=== PATIENT | male | born 1945 | race African-American/Black ===

== ENCOUNTER 2018-02-21 13:15 | Emergency (ER) | payer OTHER ==
[2018-02-21 13:20] VITALS: BP 145/70; PULSE 70; TEMP 98.3; BMI 24.4
[2018-02-21] MEDS ORDERED: ACETAMINOPHEN 325 MG TABLET (FP) PO ONE (13:26)
[2018-02-21] MEDS ORDERED: ACETAMINOPHEN 325 MG TABLET (FP) ONE (13:27)
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
== END 2018-02-21 15:20 | disposition home or self-care (01) ==
LOC: FER 13:15
DX: S39.012A Strain of muscle, fascia and tendon of lower back, initial encounter (principal); V43.52XA Car driver injured in collision with other type car in traffic accident, initial encounter; Y93.89 Activity, other specified; Y92.410 Unspecified street and highway as the place of occurrence of the external cause; Z72.0 Tobacco use; I10 Essential (primary) hypertension
CPT/HCPCS: 72100-TC-FY; 99283-25

== ENCOUNTER 2020-03-24 12:01 | Emergency (ER) | payer OTHER ==
[2020-03-24 12:24] VITALS: BP 153/66; PULSE 63; TEMP 98.6; BMI 24.8
[2020-03-24] MEDS ORDERED: IBUPROFEN 400 MG TABLET (FP) PO ONE ×2 (12:33→12:53)
== END 2020-03-24 12:59 | disposition home or self-care (01) ==
LOC: FER 12:01
DX: S43.402A Unspecified sprain of left shoulder joint, initial encounter (principal)
CPT/HCPCS: 99283-25

== ENCOUNTER 2020-07-17 04:46 | Day surgery (SDC) | payer OTHER ==
[2020-07-13 17:22] VITALS: BMI 25.1
[2020-07-17] MEDS ORDERED: PROPOFOL 20 ML ONE (10:05)
[2020-07-17] MEDS ORDERED: MIDAZOLAM HCL 2 MG/2 ML SINGLE DOSE VIAL ONE (10:05)
[2020-07-17] MEDS ORDERED: ONDANSETRON 4 MG/2 ML VIAL IVPUSH PRN (12:08)
[2020-07-17] MEDS ORDERED: ACETAMINOPHEN 325 MG TABLET (FP) PO PRN (12:08)
[2020-07-17] MEDS ORDERED: oxyCODONE HCL 5 MG TABLET PO PRN (12:08)
[2020-07-17] MEDS ORDERED: LACTATED RINGERS SOLUTION 1,000 ML IV SCH (12:15)
[2020-07-17 13:45] VITALS: BP 149/60; PULSE 64; TEMP 97.8
== END 2020-07-17 11:45 | disposition home or self-care (01) ==
LOC: JASU-SURG 04:46
PROVIDERS: ATTEND Urology
PROC: 0TF3XZZ Fragmentation in Right Kidney Pelvis, External Approach (ICD-10-PCS; principal; 2020-07-17 09:30)
DX: N20.0 Calculus of kidney (principal); I10 Essential (primary) hypertension; E11.9 Type 2 diabetes mellitus without complications; Z79.84 Long term (current) use of oral hypoglycemic drugs
CPT/HCPCS: 82962

== ENCOUNTER 2020-11-19 09:46 | Observation (INO) | payer OTHER ==
[2020-11-19] MEDS ORDERED: ASPIRIN 81 MG CHEWABLE TABLETS PO ONE (10:20)
[2020-11-19] MEDS ORDERED: ASPIRIN 81 MG CHEWABLE TABLETS ONE (10:22)
[2020-11-19 10:45] LABS: ACTIVATED PTT 27.7 SECONDS (25.2-36.5)
[2020-11-19 10:49] LABS: INR 1.08 (0.82-1.09)
[2020-11-19 10:51] LABS: ADD RBC MORPHOLOGY YES; BASO % 3.9 % (0-2.0); EOS % 7.2 % (0-4.5); HEMATOCRIT 40.7 % (35.4-49); HEMOGLOBIN 12.6 GM/dl (11.7-16.9); LYMPH % 31.4 % (8-40); MCH 21.9 pg (25.7-33.7); MCHC 31.1 g/dl (32.0-35.9); MEAN CELL VOLUME 70.3 fl (80-96); MEAN PLT VOLUME 9.5 fl (7.5-11.1); MONO % 8.6 % (3.8-10.2); NEUT % 48.9 % (42.8-82.8); PLATELET COUNT 169 10^3/uL (134-434); RBC 5.78 M/mm3 (4.00-5.60); RDW 14.3 % (11.9-15.9)
[2020-11-19 10:56] LABS: ALBUMIN 3.9 g/dl (3.4-5.0); ALK PHOS 48 U/L (45-117); ANION GAP 6 MMOL/L (8-16); BILIRUBIN,TOTAL 0.4 mg/dl (0.2-1); CALCIUM 9.1 mg/dl (8.5-10); CHLORIDE 105 mmol/L (98-107); CO2 24 mmol/L (21-32); CREATININE 0.9 mg/dl (0.55-1.3); GLUCOSE,RANDOM 146 mg/dl (74-106); SGOT/AST 25 U/L (15-37); SGPT/ALT 19 U/L (13-61); SODIUM 135 mmol/L (136-145); TOT PROT 6.5 g/dl (6.4-8.2)
[2020-11-19] MEDS ORDERED: LORazepam 0.5 MG TABLET ONE (11:06)
[2020-11-19] MEDS ORDERED: ACETAMINOPHEN 325 MG TABLET (FP) PO PRN (14:25)
[2020-11-19 15:04] VITALS: BMI 26.2
[2020-11-19] MEDS ORDERED: NITROGLYCERIN SUBLINGUAL 1/150 0.4 MG TAB SL PRN (15:31)
[2020-11-19] MEDS ORDERED: MELATONIN 5 MG TABLETS PO PRN (15:37)
[2020-11-19] MEDS: ENOXAPARIN NA (PORCINE) 40 MG/0.4 ML DISP.SYRIN SQ SCH (15:42)
[2020-11-19] MEDS ORDERED: PATIENT'S OWN MEDICATION (NON-FORMULARY) (Sitagliptin Phos/Metformin Hcl [Janumet 50-500 M PO SCH (15:45)
[2020-11-19] MEDS: TAMSULOSIN HCL 0.4 MG CAP PO SCH (17:39)
[2020-11-19] MEDS: LISINOPRIL 20 MG TABLET PO SCH (17:39)
[2020-11-19] MEDS: INSULIN SLIDING SCALE (NOVOLOG) 1 VIAL SQ SCH ×2 (17:42→21:26)
[2020-11-19] MEDS ORDERED: MIRTAZAPINE 15 MG TABLET (FP) PO SCH (22:00)
[2020-11-20] MEDS: INSULIN SLIDING SCALE (NOVOLOG) 1 VIAL SQ SCH ×2 (06:15→10:59)
[2020-11-20] MEDS ORDERED: metFORMIN HCL 500 MG TABLET (FP) PO SCH (07:00)
[2020-11-20] MEDS ORDERED: sitaGLIPtin PHOSPHATE 50 MG TABLET PO SCH (07:00)
[2020-11-20] MEDS: TAMSULOSIN HCL 0.4 MG CAP PO SCH (08:44)
[2020-11-20 09:07] VITALS: BP 135/58; PULSE 56; TEMP 98.7
[2020-11-20 09:19] LABS: CALCIUM 8.7 mg/dl (8.5-10); CREATININE 0.9 mg/dl (0.55-1.3); MAGNESIUM 1.7 mg/dL (1.8-2.4); PHOSPHOROUS 3.9 mg/dl (2.5-4.9)
[2020-11-20] MEDS: LISINOPRIL 20 MG TABLET PO SCH (09:20)
[2020-11-20] MEDS: ENOXAPARIN NA (PORCINE) 40 MG/0.4 ML DISP.SYRIN SQ SCH (09:20)
[2020-11-20 09:21] LABS: HEMATOCRIT 39.7 % (35.4-49); HEMOGLOBIN 12.4 GM/dl (11.7-16.9); MCHC 31.2 g/dl (32.0-35.9); MEAN CELL VOLUME 70.5 fl (80-96); MEAN PLT VOLUME 10.2 fl (7.5-11.1); PLATELET COUNT 163 10^3/uL (134-434); RBC 5.63 M/mm3 (4.00-5.60); RDW 14.6 % (11.9-15.9); WHITE BLOOD COUNT 4.4 K/mm3 (4.0-10.8)
[2020-11-20] MEDS ORDERED: MAGNESIUM OXIDE 400 MG TABLET (FP) PO ONE (10:12)
[2020-11-20] MEDS ORDERED: IBUPROFEN 400 MG TABLET (FP) PO SCH (14:00)
== END 2020-11-20 11:20 | disposition home or self-care (01) ==
LOC: FER 09:46 → FM/S 13:25
PROVIDERS: ADMIT Internal Medicine; ATTEND Nurse Practitioner Acute Care
PROC: 3E023GC Introduction of Other Therapeutic Substance into Muscle, Percutaneous Approach (ICD-10-PCS; principal; 2020-11-19)
DX: I12.9 Hypertensive chronic kidney disease with stage 1 through stage 4 chronic kidney disease, or unspecified chronic kidney disease (principal); Z87.891 Personal history of nicotine dependence; N20.0 Calculus of kidney; M51.86 Other intervertebral disc disorders, lumbar region; E11.22 Type 2 diabetes mellitus with diabetic chronic kidney disease; N18.9 Chronic kidney disease, unspecified; Z29.9 Encounter for prophylactic measures, unspecified
CPT/HCPCS: 36415; 71045-TC-FY; 80048; 80053; 82962; 83735; 84100; 84484; 85025; 85027; 85610; 85730; 93005; 96372; 99285-25; C9803; G0378; U0003; U0005

== ENCOUNTER 2022-05-24 12:31 | Emergency (ER) | payer OTHER ==
[2022-05-24 12:54] VITALS: BP 148/57; PULSE 76; RESP 18; TEMP 99.7; BMI 25.8
== END 2022-05-24 14:48 | disposition home or self-care (01) ==
LOC: FER 12:31
DX: R05.9 Cough, unspecified (principal)
CPT/HCPCS: 0241U-QW; 71046-TC-FY; 99284-25

== ENCOUNTER 2022-06-04 12:09 | Emergency (ER) | payer OTHER ==
[2022-06-04] MEDS ORDERED: LIDOCAINE 5% TOPICAL PATCH TP ONE (12:28)
[2022-06-04] MEDS ORDERED: IBUPROFEN 400 MG TABLET (FP) PO ONE ×2 (12:28→12:55)
[2022-06-04 12:37] VITALS: BP 143/58; PULSE 59; RESP 16; TEMP 98.6; BMI 26.6
[2022-06-04] MEDS ORDERED: LIDOCAINE 5% TOPICAL PATCH ONE (12:55)
[2022-06-04] MEDS ORDERED: LIDOCAINE PATCH REMOVAL MC SCH (22:00)
== END 2022-06-04 13:35 | disposition home or self-care (01) ==
LOC: FER 12:09
DX: S20.211A Contusion of right front wall of thorax, initial encounter (principal); S22.31XA Fracture of one rib, right side, initial encounter for closed fracture; W18.2XXA Fall in (into) shower or empty bathtub, initial encounter
CPT/HCPCS: 71101-TC-RT-FY; 99283-25

== ENCOUNTER 2023-03-02 16:34 | Emergency (ER) | payer OTHER ==
[2023-03-02] MEDS ORDERED: KETOROLAC TROMETHAMINE 30 MG/1 ML VIAL IM ONE (16:48)
[2023-03-02] MEDS ORDERED: LIDOCAINE 5% TOPICAL PATCH TP ONE (16:48)
[2023-03-02] MEDS ORDERED: CYCLOBENZAPRINE HCL 5 MG TABLET PO ONE (16:50)
[2023-03-02] MEDS ORDERED: DEXAMETHASONE LIQUID 0.5 MG/5 ML PO ONE (16:52)
[2023-03-02 16:54] VITALS: TEMP 98; BMI 26.6
[2023-03-02] MEDS ORDERED: DEXAMETHASONE SOD PHOSPHATE 10 MG/1 ML VIAL ONE (17:04)
[2023-03-02] MEDS ORDERED: KETOROLAC TROMETHAMINE 30 MG/1 ML VIAL ONE (17:04)
[2023-03-02] MEDS ORDERED: LIDOCAINE 5% TOPICAL PATCH ONE (17:04)
[2023-03-02 19:12] VITALS: BP 162/77; PULSE 79; RESP 16
[2023-03-02] MEDS ORDERED: LIDOCAINE PATCH REMOVAL MC SCH (22:00)
== END 2023-03-02 19:00 | disposition home or self-care (01) ==
LOC: FER 16:34
PROC: 3E0233Z Introduction of Anti-inflammatory into Muscle, Percutaneous Approach (ICD-10-PCS; principal; 2023-03-02)
DX: M54.50 Low back pain, unspecified (principal); M48.07 Spinal stenosis, lumbosacral region
CPT/HCPCS: 99284-25